=== PATIENT | male | born 1990 | race Caucasian/White ===

== ENCOUNTER 2023-12-20 08:33 | Outpatient (AMB) | payer OTHER, SELFPAY ==
[2023-12-20 08:39] VITALS: BP 110/64; PULSE 74; O2SAT 100; BMI 27.9
--- NOTE | 2023-12-20 08:39 | MHC.OFFVIS ---
Intake Vital Signs 12/20/23 08:39 Height 6 ft Weight 206 lb BMI 27.9 BP 110/64 Blood Pressure Location Rt brachial Position Sitting Pulse 74 Pulse Source Pulse Oximeter Pulse Oximetry (%) 100 Oxygen Delivery Method Room Air Intake Visit Reasons: Obstructive sleep apnea Lead Front End Developer Required: No Sales Merchandise Associate: Sales Merchandise Associate offered & declined Accompanied by: Self / Same As Patient Allergies No Known Allergies [No Known Allergies*] Allergy (Unverified 04/30/21 16:34) NKA Allergy (Unknown, Uncoded 04/30/21 16:34) none Medication List - Last Reconciled 12/20/23 by Ninfa Chen LPN citalopram 40 mg PO DAILY dextroamphetamine-amphetamine 20 mg ER (Adderall XR) 40 mg PO DAILY HPI Obstructive sleep apnea HPI Details Rajesh is a pleasant 33 year old male, never smoker with underlying obstructive sleep apnea and anxiety. He was referred by PCP for pulmonary evaluation. He reports prior diagnosis of HECTOR years ago and was compliant with CPAP therapy, which significantly decreased his daytime fatigue, restless leg syndrome, snoring and witness apneas. He underwent bariatric surgery in 2019, no longer requiring CPAP therapy, after a 150 lb weight loss. He states that his weight has slowly increased and reports his has noticed more witnessed apneas. He had recent sleep study, 07/2023, which revealed an AHI of 8. Today he presents to restart CPAP therapy. He denies any respiratory symptoms presently. [facility] Surgical History (Updated 04/30/21 @ 16:36 by Shira Gilbert LPN) Hx of appendectomy Hx of gastric bypass Family History (Updated 04/30/21 @ 16:37 by Shira Gilbert LPN) Mother No problems noted. Father Asthma Sister No problems noted. Social History (Updated 12/20/23 @ 08:45 by Ninfa Chen LPN) Alcohol intake: never Patient Tobacco Use Status: Never used Tobacco Review of Systems Const Denies chills, Denies excessive sweating, Denies fever(s), Denies headache(s) and Denies night sweats Eyes Denies dry eyes, Denies irritation and Denies itchy eyes ENT Reports Normal hearing present, Denies headache(s), Denies nasal congestion, Denies nasal discharge, Denies post nasal drip and Denies sore throat Card Denies chest pain, Denies chest pain at rest, Denies chest pain with activity, Denies claudication, Denies leg edema, Denies dyspnea, Denies dyspnea on exertion, Denies orthopnea and Denies paroxysmal nocturnal dyspnea Resp Denies chest congestion, Denies cough, Denies excessive phlegm production, Denies pain on inspiration, Denies pain with cough, Denies dyspnea, Denies dyspnea on exertion, Denies stridor and Denies wheezing Musc Denies myalgias Neuro Reports Normal hearing present and Denies headache(s) Endo Denies excessive sweating Emerson/Lymph Denies lymphadenopathy Aller/Immun Denies itchy eyes, Reports seasonal rhinorrhea and Denies wheezing Physical Exam Vital Signs: Last Vital Signs Pulse 74 12/20/23 08:39 BP 110/64 12/20/23 08:39 Pulse Ox 100 12/20/23 08:39 Oxygen Delivery Method Room Air 12/20/23 08:39 BMI result Body Mass Index 27.9 Const General: cooperative, healthy appearing, comfortable, no acute distress, well developed and alert Orientation/consciousness: patient oriented x3 Limitations: no limitations HEENT Head: Yes normal to inspection, Yes normocephalic and Yes atraumatic Ears: hearing grossly normal bilaterally and external ears normal Eyes General: appearance normal, both eyes and all related structures Eyelids: Yes eyelids normal Sclerae: sclerae normal EOM: EOMs intact bilaterally Neck Neck: Yes normal visual inspection and Yes no lymphadenopathy Lymphatic: no lymphadenopathy noted Chest Chest palpation & inspection: normal inspection of the chest Resp Effort & Inspection: normal respiratory effort, able to speak in complete sentences, no audible wheezes, no cough, no stridor, not tachypneic, no tripod positioning and no use of accessory muscles Auscultation: clear to auscultation bilaterally Cardio Jugular venous distension: no JVD Rate: regular rate Rhythm: regular rhythm Skin Other: warm, dry General skin exam: no rashes or lesions noted Neuro General: patient oriented x3 Cranial nerves: Yes Normal hearing present Cognition (Neuro): normal cognition Gait exam (Neuro): Normal gait present Extrem General: Yes normal to inspection, Yes capillary refill normal, Yes no clubbing, cyanosis or edema and Yes no pedal edema Psych Appearance: grossly normal and well kempt Speech and movement: Normal speech and movement present and Clear speech present Affect: normal affect Attitude: cooperative Thought process: Normal thought process present Thought content: Normal thought content present Insight: Good insight present (Psych) Judgement: Good judgement present (Psych) Assessment & Plan Assessment & Plan (1) Obstructive sleep apnea: Code(s): G47.33 - Obstructive sleep apnea (adult) (pediatric) Plan Rajesh presents to discuss restarting CPAP therapy. A home sleep study from 2022 revealed an AHI of 8. Since patient is symptomatic, will restart CPAP therapy. Will send in prescription for APAP mode and pressure settings of 6-16 cm with close monitoring for compliance and benefits. Sleep hygiene education reviewed. He is aware if there are any issues with the mask or CPAP machine,he will call the office. All questions were answered and patient is in agreement of plan. Will follow up in 8 -12 weeks. Coding Level of Care Code New Pt Level 3 (26643) Diagnoses Obstructive sleep apnea G47.33
== END 2023-12-20 09:09 | disposition home or self-care (01) ==
PROVIDERS: PCP Internal Medicine; Referring Provider Physician Assistant; Visit Provider Nurse Practitioner Family
DX: G47.33 Obstructive sleep apnea (adult) (pediatric) (principal)
CPT/HCPCS: 99203

== ENCOUNTER → 2023-12-20 08:33 | Outpatient (BNVA) | payer OTHER, SELFPAY | PROVIDERS: PCP Internal Medicine; Referring Provider Physician Assistant; Visit Provider Nurse Practitioner Family ==

== ENCOUNTER 2024-05-04 09:40 | Outpatient (AMB) | payer OTHER, SELFPAY ==
--- NOTE | 2024-05-04 09:45 | MHC.OFFVIS ---
Vital Signs 05/04/24 09:46 Height 6 ft Weight 210 lb 2 oz BMI 28.5 BP 106/58 L Blood Pressure Location Lt brachial Position Sitting Pulse 78 Pulse Source Pulse Oximeter Pulse Oximetry (%) 98 Oxygen Delivery Method Room Air Intake Visit Reasons: hector Allergies No Known Allergies [No Known Allergies*] Allergy (Unverified 05/04/24 09:47) NKA Allergy (Unknown, Uncoded 05/04/24 09:47) none HPI HPI hector: Details: Rajesh is a pleasant 33 year old male, never smoker with underlying obstructive sleep apnea and anxiety. He reports prior diagnosis of HECTOR years ago and was compliant with CPAP therapy, which significantly decreased his daytime fatigue, restless leg syndrome, snoring and witness apneas. He underwent bariatric surgery in 2019, no longer requiring CPAP therapy, after a 150 lb weight loss. He states that his weight has slowly increased and was sent for repeat sleep study which revealed mild HECTOR, AHI of 8. Today he presents to review CPAP therapy and compliance. Today, he denies any respiratory symptoms. [facility] Surgical History (Updated 04/30/21 @ 16:36 by Shira Gilbert LPN) Hx of appendectomy Hx of gastric bypass Family History (Updated 04/30/21 @ 16:37 by Shira Gilbert LPN) Mother No problems noted. Father Asthma Sister No problems noted. Social History Alcohol intake: never Patient Tobacco Use Status: Never used Tobacco Review of Systems Const Denies chills, Denies excessive sweating, Denies fever(s), Denies headache(s) and Denies night sweats Eyes Denies dry eyes, Denies irritation and Denies itchy eyes ENT Reports Normal hearing present, Denies headache(s), Denies nasal congestion, Denies nasal discharge, Denies post nasal drip and Denies sore throat Card Denies chest pain, Denies chest pain at rest, Denies chest pain with activity, Denies claudication, Denies leg edema, Denies dyspnea, Denies dyspnea on exertion, Denies orthopnea and Denies paroxysmal nocturnal dyspnea Resp Denies chest congestion, Denies cough, Denies excessive phlegm production, Denies pain on inspiration, Denies pain with cough, Denies dyspnea, Denies dyspnea on exertion, Denies stridor and Denies wheezing Musc Denies myalgias Neuro Reports Normal hearing present and Denies headache(s) Endo Denies excessive sweating Emerson/Lymph Denies lymphadenopathy Aller/Immun Denies itchy eyes, Reports seasonal rhinorrhea and Denies wheezing Physical Exam Vital Signs: Last Vital Signs Pulse 78 05/04/24 09:46 BP 106/58 L 05/04/24 09:46 Pulse Ox 98 05/04/24 09:46 Oxygen Delivery Method Room Air 05/04/24 09:46 BMI result Body Mass Index 28.5 Const General: cooperative, healthy appearing, comfortable, no acute distress, well developed and alert Nutritional Appearance: obese Orientation/consciousness: patient oriented x3 Limitations: no limitations HEENT Head: Yes normal to inspection, Yes normocephalic and Yes atraumatic Ears: hearing grossly normal bilaterally and external ears normal Eyes General: appearance normal, both eyes and all related structures Eyelids: Yes eyelids normal Sclerae: sclerae normal EOM: EOMs intact bilaterally Neck Neck: Yes normal visual inspection and Yes no lymphadenopathy Lymphatic: no lymphadenopathy noted Chest Chest palpation & inspection: normal inspection of the chest Resp Effort & Inspection: normal respiratory effort, able to speak in complete sentences, no audible wheezes, no cough, no stridor, not tachypneic, no tripod positioning and no use of accessory muscles Auscultation: clear to auscultation bilaterally Cardio Jugular venous distension: no JVD Rate: regular rate Rhythm: regular rhythm Skin Other: warm, dry General skin exam: no rashes or lesions noted Neuro General: patient oriented x3 Cranial nerves: Yes Normal hearing present Cognition (Neuro): normal cognition Gait exam (Neuro): Normal gait present Extrem General: Yes normal to inspection, Yes capillary refill normal, Yes no clubbing, cyanosis or edema and Yes no pedal edema Psych Appearance: grossly normal and well kempt Speech and movement: Normal speech and movement present and Clear speech present Affect: normal affect Attitude: cooperative Thought process: Normal thought process present Thought content: Normal thought content present Insight: Good insight present (Psych) Judgement: Good judgement present (Psych) Assessment & Plan Assessment & Plan (1) Obstructive sleep apnea: Code(s): G47.33 - Obstructive sleep apnea (adult) (pediatric) Category: Medical Plan Reviewed compliance report. Patient has used CPAP therapy 57% of the last 30 days, with 37% of the time using greater than 4 hours. He reports having difficulties with the mask and will be reaching out to [facility] to trial a new mask. He is willing to be more compliant with therapy. All questions were answered and patient is in agreement of plan. Will follow up in 3-6 months or sooner if needed. Coding Level of Care Code Est Pt Level 3 (88408) Diagnoses Obstructive sleep apnea G47.33
[2024-05-04 09:46] VITALS: BP 106/58; PULSE 78; O2SAT 98; BMI 28.5
== END 2024-05-04 10:03 | disposition home or self-care (01) ==
PROVIDERS: PCP Internal Medicine; Visit Provider Nurse Practitioner Family
DX: G47.33 Obstructive sleep apnea (adult) (pediatric) (principal)
CPT/HCPCS: 99213

== ENCOUNTER → 2024-05-04 09:40 | Outpatient (BNVA) | payer OTHER, SELFPAY | PROVIDERS: PCP Internal Medicine; Visit Provider Nurse Practitioner Family ==